=== PATIENT | male | born 1970 | race Caucasian/White ===

== ENCOUNTER 2017-07-30 22:22 | Observation (INO) | payer OTHER ==
[~2017-07-30] VITALS: Ht 182.9 cm; Wt 95.7 kg
[~2017-07-30 22:22] MED LIST: AMLODIPINE BES2.5 MG PO; ASPIR-LOW81 MG PO; ATORVASTATIN CA80 MG PO; BRILINTA90 MG PO; CYCLOBENZAPRINE10 MG PO; DECADRON1 MG PO; GABAPENTIN300 MG PO; IMDUR30 MG PO; LISINOPRIL2.5 MG PO; LO-DOSE ASPIRIN81 M1 PO; LOPRESSOR25 MG PO; LORTAB 5-325 M1 EACH PO; METOPROLOL TART25 MG PO; NAPROXEN500 MG PO; NITROSTAT0.4 MG SL; PREDNISONE10 MG PO; ULTRAM50 MG PO; VALIUM5 MG PO
[2017-07-30 22:45] LABS: HEMOGLOBIN 15.1 G/DL (12.5-16.6); MCH 29.8 PG (29.0-34.0); MCHC 34.3 G/DL (30.0-36.0); RBC DIS.WIDTH-CV 13.3 % (11.8-14.6); RED BLOOD COUNT 5.06 M/uL (4.00-5.50)
[2017-07-30 22:54] LABS: CHLORIDE 102 mEq/L (99-109); POTASSIUM 3.9 mEq/L (3.7-5.4); SODIUM 135 mEq/L (136-147)
[2017-07-30 22:55] LABS: GLUCOSE 101 mg/dL (70-99)
[2017-07-30 22:59] LABS: CREATININE 1.2 mg/dL (0.6-1.3); GFR ESTIMATE (CALCULATED) > 59 mL/min/ (58.99-99999)
[2017-07-30 23:00] LABS: UREA NITROGEN (BUN) 16 mg/dL (9-23)
[2017-07-30 23:05] LABS: TROP-I INTERPRETATION NEGATIVE; TROPONIN-I < 0.01 ng/mL (0.0-0.30)
[2017-07-30 23:27] LABS: PLAT.SUFFICIENCY ADEQUATE; PLATELET COUNT 227 K/uL (156-360)
[2017-07-31 00:06] LABS: D-DIMER ELISA < 150.00 ng/mLDDU (<230)
[2017-07-31] MEDS ORDERED: GLYBURIDE5 MG PO (01:23)
[2017-07-31] MEDS ORDERED: VITAMIN D5000 UNI1 PO (01:24)
[2017-07-31 01:39] LABS: ALBUMIN 4.2 g/dL (3.2-4.8)
[2017-07-31 01:42] LABS: TOTAL PROTEIN 6.8 g/dL (6.4-8.3)
[2017-07-31 01:44] LABS: TOTAL BILIRUBIN 0.9 mg/dL (0.0-1.0)
[2017-07-31 01:45] LABS: ALKALINE PHOSPHATASE 110 IU/L (3-129)
[2017-07-31 01:47] LABS: AST (GOT) 23 IU/L (2-34)
[2017-07-31 01:48] LABS: ALT (GPT) 28 IU/L (3-49); DIRECT BILIRUBIN 0.3 mg/dL (0.0-0.3)
[2017-07-31 01:53] VITALS: BP 112/63
[2017-07-31 06:17] LABS: TROP-I INTERPRETATION NEGATIVE; TROPONIN-I < 0.01 ng/mL (0.0-0.30)
[2017-07-31 06:23] LABS: HDL CHOLESTEROL 28 MG/DL (Desirable>=40); LDL CHOLESTEROL 64 mg/dL (Desirable<100); NON-HDL CHOLESTEROL 105 mg/dL (Desirable<160); TOTAL CHOLESTEROL 133 mg/dL (Desirable<200); TRIGLYCERIDES 204 MG/DL (Normal: <150)
[2017-07-31 08:16] VITALS: BP 110/62
[2017-07-31] MEDS ORDERED: NICOTINE PATCH1 EAC2 TD (11:35)
[2017-07-31] MEDS ORDERED: PANTOPRAZOLE SO40 MG PO (11:36)
[2017-07-31 12:16] VITALS: BP 111/62
[2017-07-31 12:18] LABS: TROP-I INTERPRETATION NEGATIVE; TROPONIN-I < 0.01 ng/mL (0.0-0.30)
== END 2017-07-31 13:10 | disposition home or self-care (01) ==
LOC: EME 22:22 → EDOF 07-31 00:56 → ENRESERV 07-31 00:57 → 5WEST 07-31 01:42
PROVIDERS: Physician Assistant Medical
DX: R07.89 Other chest pain (principal); I25.10 Atherosclerotic heart disease of native coronary artery without angina pectoris; E11.9 Type 2 diabetes mellitus without complications; E78.5 Hyperlipidemia, unspecified; I10 Essential (primary) hypertension; R20.0 Anesthesia of skin; R42 Dizziness and giddiness; R51 Headache; R06.00 Dyspnea, unspecified; R61 Generalized hyperhidrosis; R06.09 Other forms of dyspnea; I25.2 Old myocardial infarction; G89.29 Other chronic pain; M54.5 Low back pain; F17.210 Nicotine dependence, cigarettes, uncomplicated; Z82.49 Family history of ischemic heart disease and other diseases of the circulatory system; Z79.82 Long term (current) use of aspirin; Z79.84 Long term (current) use of oral hypoglycemic drugs; Z95.5 Presence of coronary angioplasty implant and graft
CPT/HCPCS: 71046; 80048; 80061; 80076; 84484; 85027; 85379; 93005; G0378; J1650; J2270